=== PATIENT | male | born 1965 | race Hispanic/Latino ===

== ENCOUNTER 2017-01-20 14:58 | Emergency (ER) | payer SELFPAY ==
[2017-01-20 16:10] LABS: Basophils % (Auto) 0.6 % (0.0-1.8); Eosinophils % (Auto) 0.3 % (0.0-4.3); Hematocrit 48.2 % (35.5-45.6); Hemoglobin 16.3 gm/dl (11.8-15.2); Mean Corpuscular HGB Conc 34 % (32-34); Mean Corpuscular Hemoglobin 34 pg (28-32); Mean Corpuscular Volume 100 fl (84-94); Platelet Count 349 K/mm3 (140-440); Red Blood Count 4.84 M/mm3 (3.65-5.03); Red Cell Distribution Width 13.5 % (13.2-15.2); White Blood Count 10.4 K/mm3 (4.5-11.0)
[2017-01-20 16:19] LABS: Alanine Aminotransferase 55 units/L (7-56); Albumin 4.6 g/dL (3.9-5); Albumin/Globulin Ratio 1.5 %; Alkaline Phosphatase 67 units/L (35-129); Anion Gap 25 mmol/L; BUN/Creatinine Ratio 23.75; Blood Urea Nitrogen 19 mg/dL (9-20); Calcium 9.8 mg/dL (8.4-10.2); Carbon Dioxide 24 mmol/L (22-30); Glucose 171 mg/dL (75-100); Lipase 67 units/L (13-60); Potassium 3.8 mmol/L (3.6-5.0); Sodium 135 mmol/L (137-145); Total Protein 7.7 g/dL (6.3-8.2)
[2017-01-20 17:40] LABS: Bilirubin,Urine NEG (Negative); Blood,Urine NEG (Negative); Ketones,Urine TR mg/dL (Negative); Leukocyte Esterase,Urine NEG (Negative); Mucus,Urine 3+ /HPF; Nitrite,Urine NEG (Negative)
[2017-01-21] MEDS ORDERED: PEPCID PO ONE (00:55)
[2017-01-21] MEDS ORDERED: LIDOCAINE VISCOUS 2% PO ONE (00:55)
[2017-01-21] MEDS ORDERED: NACL 0.9% 1000 ML 1,000 ML IV ONE (00:55)
[2017-01-21] MEDS ORDERED: ZOFRAN ODT PO ONE (00:55)
[2017-01-21] MEDS ORDERED: ALUM-MAG HYDROX-SIMETH 200-200-20MG/5ML PO ONE (00:55)
--- NOTE | 2017-01-21 01:21 | Emergency Department Report ---
ED Abdominal Pain HPI - General Chief Complaint: Abdominal Pain Stated Complaint: ABD PAIN/VOMITING Time Seen by Provider: 01/21/17 00:52 Source: patient Mode of arrival: Ambulatory Limitations: No Limitations - History of Present Illness Initial Comments: Patient is a 51-year-old male with a history of GERD and bilateral inguinal hernia repair presenting today because of abdominal pain. Patient states that the abdominal pain is epigastric and burning and similar to his prior GERD. He normally takes Prilosec but has been out for a little while. Has associated nausea with occasional vomiting but no diarrhea or blood in the stool. Denies any fevers or chills. Severity scale (0 -10): 10 - Related Data Home Medications Medication Instructions Recorded Confirmed Last Taken No Known Home Medications [No 01/20/17 01/20/17 Unknown Reported Home Medications] Allergies Allergy/AdvReac Type Severity Reaction Status Date / Time metoclopramide HCl Allergy Unknown Verified 12/14/15 09:30 [From Reglan] promethazine HCl Allergy Unknown Verified 12/14/15 09:30 [From Phenergan] ED Review of Systems ROS: Stated complaint: ABD PAIN/VOMITING Other details as noted in HPI Comment: All other systems reviewed and negative Constitutional: denies: chills, fever Cardiovascular: denies: chest pain Gastrointestinal: abdominal pain, nausea, vomiting Genitourinary: denies: dysuria Skin: denies: rash Psychiatric: denies: anxiety ED Past Medical Hx - Past Medical History Previous Medical History?: Yes Hx GERD: Yes Hx Psychiatric Treatment: Yes (anxiety, ETOH abuse, DRUG ABUSE) - Surgical History Past Surgical History?: Yes Additional Surgical History: hernia surgery X 2 - Social History Smoking Status: Current Some Day Smoker Substance Use Type: Alcohol - Medications Home Medications: Home Medications Medication Instructions Recorded Confirmed Last Taken Type No Known Home Medications [No 01/20/17 01/20/17 Unknown History Reported Home Medications] ED Physical Exam - General Limitations: No Limitations General appearance: alert, in no apparent distress - Head Head exam: Present: atraumatic - Respiratory Respiratory exam: Present: normal lung sounds bilaterally. Absent: respiratory distress, wheezes - Cardiovascular Cardiovascular Exam: Present: regular rate, normal rhythm - GI/Abdominal GI/Abdominal exam: Present: soft. Absent: distended, tenderness, guarding, rebound, rigid - Neurological Exam Neurological exam: Present: alert, oriented X3 - Psychiatric Psychiatric exam: Present: normal affect ED Course Vital Signs 01/20/17 01/20/17 01/20/17 15:14 20:59 22:58 Temperature 97.8 F Pulse Rate 82 108 H 90 Respiratory 20 18 22 Rate Blood Pressure 163/102 Blood Pressure 142/103 [Right] O2 Sat by Pulse 100 99 99 Oximetry 01/20/17 01/20/17 01/21/17 23:00 23:30 00:00 Temperature Pulse Rate 91 H 107 H 95 H Respiratory 11 L 19 17 Rate Blood Pressure 132/95 129/92 Blood Pressure 132/95 [Right] O2 Sat by Pulse 98 98 97 Oximetry 01/21/17 01/21/17 01/21/17 00:30 01:00 01:30 Temperature Pulse Rate 95 H 89 72 Respiratory 20 13 17 Rate Blood Pressure 128/83 125/93 115/75 Blood Pressure [Right] O2 Sat by Pulse 96 98 97 Oximetry 01/21/17 01/21/17 01/21/17 02:00 02:30 03:53 Temperature Pulse Rate 71 74 Respiratory 15 17 18 Rate Blood Pressure 110/72 106/65 Blood Pressure [Right] O2 Sat by Pulse 99 Oximetry ED Medical Decision Making - Lab Data Result diagrams: 01/20/17 15:20 01/20/17 15:20 - Medical Decision Making Labs have been preordered, are unremarkable including a minimally elevated lipase and liver enzymes Most likely due to peptic ulcer disease versus GERD GI cocktail and Zofran ordered as well as IV fluids as the patient is dehydrated Patient felt significantly better after GI cocktail, is going to the patient importance of following up with primary care and gastroenterology. Also spent that he needs to have the blood in his urine investigated as this could be possibly due to cancer. Patient understood. Was discharged with paper chart as the EMR was down. Critical care attestation.: If time is entered above; I have spent that time in minutes in the direct care of this critically ill patient, excluding procedure time. ED Disposition Clinical Impression: Epigastric abdominal pain Disposition: DISCHARGED TO HOME OR SELFCARE Is pt being admited?: No Condition: Stable Referrals: PRIMARY CARE, [Primary Care Provider] - 3-5 Days
[2017-01-21 02:42] VITALS: BP 106/65
[2017-01-21] MEDS ORDERED: TYLENOL PO ONE (03:42)
== END 2017-01-21 05:10 | disposition home or self-care (01) ==
LOC: ED 14:58
DX: R10.13 Epigastric pain (principal); R11.2 Nausea with vomiting, unspecified; K21.9 Gastro-esophageal reflux disease without esophagitis; F17.200 Nicotine dependence, unspecified, uncomplicated
CPT/HCPCS: 36415; 80053; 81001; 83690; 85025; 96360; 96361; 99283; J7030; Q0162

== ENCOUNTER 2018-04-04 08:18 | Inpatient (IN) | payer SELFPAY ==
[2018-04-04] MEDS ORDERED: ZOFRAN IV ONE (09:34)
[2018-04-04] MEDS ORDERED: PROTONIX IV ONE (09:34)
[2018-04-04] MEDS ORDERED: NACL 0.9% 1000 ML 1,000 ML IV ONE ×2 (09:34→10:25)
--- NOTE | 2018-04-04 09:38 | Emergency Department Report ---
Blank Doc - Documentation Documentation: Patient is 52 years old male with history of GERD and alcohol abuse. Patient presented to the ER complaining of epigastric pain associated with nausea and vomiting for the last 3 days. Patient stated that the last time he drink was 5 days ago. Patient stated that he is weak all over. Patient denied any fever or diarrhea. Patient also denied any chest pain or shortness of breath. On examination patient is moderately dehydrated, moderate distress secondary to pain, heart sounds are normal, lungs are clear, abdomen is soft with epigastric tenderness no guarding. Patient will need IV fluids, pain medicine, nausea medicine and blood work. Patient would be served best in our main ED.
[2018-04-04 09:57] LABS: Eosinophils % (Auto) 0.3 % (0.0-4.3); Monocytes # (Auto) 1.2 K/mm3 (0.0-0.8); Monocytes % (Auto) 10.7 % (0.0-7.3)
[2018-04-04] MEDS ORDERED: SUBLIMAZE IV ONE (10:00)
[2018-04-04 10:09] LABS: Hematocrit 50.4 % (35.5-45.6); Hemoglobin 17.8 gm/dl (11.8-15.2); Mean Corpuscular HGB Conc 35 % (32-34); Mean Corpuscular Hemoglobin 36 pg (28-32); Mean Corpuscular Volume 101 fl (84-94); Mean Platelet Volume 7.7 fl (6-12); Platelet Count 386 K/mm3 (140-440); Red Blood Count 4.98 M/mm3 (3.65-5.03); Red Cell Distribution Width 12.6 % (13.2-15.2)
[2018-04-04 10:10] LABS: Basophils % (Auto) 0.3 % (0.0-1.8); Lymphocytes # (Auto) 2.1 K/mm3 (1.2-5.4)
--- NOTE | 2018-04-04 10:14 | Emergency Department Report ---
HPI - General Chief Complaint: Abdominal Pain Time Seen by Provider: 04/04/18 09:30 - [facility] HPI: Room 3 The patient is a 52-year-old male presenting with chief complaint of abdominal pain. The patient states for the past 4 days she's had a constant burning midepigastric abdominal pain associated with nausea and vomiting. Patient states she's noticed increasing eructation. Patient denies diarrhea but states he hasn't had any food inside of him. Patient is uncertain as he's had a fever or not Location: Abdomen Duration: 4 days Quality: Burning Severity: Moderate Modifying factors: [see above] Context: [see above] Mode of transportation: [not driving] ED Past Medical Hx - Past Medical History Previous Medical History?: Yes Hx GERD: Yes Hx Psychiatric Treatment: Yes (anxiety, ETOH abuse, DRUG ABUSE) - Surgical History Past Surgical History?: Yes Additional Surgical History: hernia surgery X 2 - Family History Family history: no significant - Social History Smoking Status: Current Some Day Smoker Substance Use Type: Alcohol (24 ounces of loco beer daily), Marijuana - Medications Home Medications: Home Medications Medication Instructions Recorded Confirmed Last Taken Type No Known Home Medications [No 01/20/17 01/20/17 Unknown History Reported Home Medications] ED Review of Systems ROS: Stated complaint: ABDOMINAL PAIN/NAUSEA Other details as noted in HPI Constitutional: fever (?) Eyes: denies: eye pain ENT: denies: throat pain Respiratory: no symptoms reported Cardiovascular: denies: chest pain Endocrine: no symptoms reported Gastrointestinal: abdominal pain, nausea, vomiting. denies: diarrhea Genitourinary: denies: dysuria Musculoskeletal: denies: back pain Neurological: denies: headache Physical Exam - Physical Exam Vital Signs: Vital Signs 04/04/18 08:23 Temperature 98.0 F Pulse Rate 87 Respiratory 20 Rate Blood Pressure 151/93 O2 Sat by Pulse 99 Oximetry Physical Exam: GENERAL: The patient is well-developed well-nourished male lying on stretcher appearing to be in mild discomfort. [] HEENT: Normocephalic. Atraumatic. Extraocular motions are intact. Patient has moist mucous membranes. NECK: Supple. Trachea midline CHEST/LUNGS: Clear to auscultation. There is no respiratory distress noted. HEART/CARDIOVASCULAR: Regular. There is no tachycardia. There is no gallop rub or murmur. ABDOMEN: Abdomen is soft, with diffuse discomfort to palpation but greatest in midepigastric region. Patient has normal bowel sounds. There is no abdominal distention. SKIN: There is no rash. There is no edema. There is no diaphoresis. NEURO: The patient is awake, alert, and oriented. The patient is cooperative. The patient has normal speech MUSCULOSKELETAL: There is no evidence of acute injury. ED Course Vital Signs 04/04/18 08:23 Temperature 98.0 F Pulse Rate 87 Respiratory 20 Rate Blood Pressure 151/93 O2 Sat by Pulse 99 Oximetry ED Medical Decision Making - Lab Data Result diagrams: 04/04/18 09:43 04/04/18 09:43 Laboratory Tests 04/04/18 04/04/18 04/04/18 09:43 09:43 09:43 WBC 11.5 H RBC 4.98 Hgb 17.8 H Hct 50.4 H MCV 101 H MCH 36 H MCHC 35 H RDW 12.6 L Plt Count 386 Lymph % (Auto) 18.0 [place] % (Auto) 10.7 H Eos % (Auto) 0.3 Baso % (Auto) 0.3 Lymph # 2.1 [place] # 1.2 H Eos # 0.0 Baso # 0.0 Seg Neutrophils % 70.7 H Seg Neutrophils # 8.1 H Sodium 131 L Potassium 4.0 Chloride 83.5 L Carbon Dioxide 26 Anion Gap 26 BUN 37 H Creatinine 1.0 Estimated GFR > 60 BUN/Creatinine Ratio 37 Glucose 118 H Calcium 9.6 Total Bilirubin 1.20 Direct Bilirubin 0.4 H Indirect Bilirubin 0.8 AST 33 ALT 35 Alkaline Phosphatase 61 Total Creatine Kinase 262 H CK-MB (CK-2) 4.0 CK-MB (CK-2) Rel Index 1.5 Troponin T < 0.010 Total Protein 8.1 Albumin 4.7 Albumin/Globulin Ratio 1.4 Lipase 100 H - Radiology Data Radiology results: report reviewed (CT abdomen and pelvis), image reviewed (CT abdomen and pelvis) Findings [facility] [address] [place] [address] Cat Scan Report Signed Patient: JENNIFER HERNANDEZ MR#: [id number] : 1965 Acct:[id number] Age/Sex: 52 / M ADM Date: 04/04/18 Loc: ED Attending Dr: Ordering Physician: MARK ANTHONY RODRIGUEZ MD Date of Service: 04/04/18 Procedure(s): CT abdomen pelvis w con Accession Number(s): [id number] cc: MARK ANTHONY RODRIGUEZ MD FINAL REPORT EXAM: CT ABDOMEN PELVIS W CON HISTORY: epigastric abdominal pain, nausea/ vomiting TECHNIQUE: CT abdomen and pelvis performed. Images extend from diaphragm to pubic symphysis. 100 cc Omnipaque 300 IV was administered. No oral contrast was administered. Axial images and coronal and sagittal reformatted images were obtained. PRIORS: 05/20/2016 and 03/16/2015 FINDINGS: The visualized aspects of the lung bases are clear. There is likely cholelithiasis versus small gallbladder polyps. There is a 1.2 cm low-density lesion in the inferior right hepatic lobe and 8 mm lesion in the lateral left lobe. These are and likely cysts. Tiny lesion in medial left lobe measures 8 mm and is too small to characterize to definitively characterized but is likely present in 2014. It most likely a very small hemangioma. The visualized spleen, pancreas, adrenal glands and kidneys demonstrate no significant abnormalities. There is no abdominal aortic aneurysm. There is no evidence of intestinal obstruction. The appendix is normal. There is no free intraperitoneal air. There are no abnormal fluid collections seen. The bladder is unremarkable. There is diverticulosis involving the sigmoid colon, but there is no evidence of acute diverticulitis. IMPRESSION: Two small liver cysts are unchanged. Other 8 mm liver lesion is probably a small hemangioma. Diverticulosis. There is no evidence of acute diverticulitis. Cholelithiasis versus small gallbladder polyps. Transcribed By: [facility] Dictated By: EMMA ROMO MD Electronically Authenticated By: EMMA ROMO MD Signed Date/Time: 04/04/181122 DD/ 112 TD/ TT: 04/04/18 112 - Differential Diagnosis pancreatitis, GERD, peptic ulcer disease, cholelithiasis, ACS Critical care attestation.: If time is entered above; I have spent that time in minutes in the direct care of this critically ill patient, excluding procedure time. ED Disposition Clinical Impression: Acute pancreatitis, Acute abdominal pain, Nausea & vomiting Disposition: OP ADMIT IP TO THIS HOSP Is pt being admited?: Yes Does the pt Need Aspirin: No Condition: Fair Referrals: PRIMARY CARE, [Primary Care Provider] - 3-5 Days Time of Disposition: 11:35 (hospitalist notified (Dr Gutierrez))
[2018-04-04 10:17] LABS: Alanine Aminotransferase 35 units/L (7-56); Albumin 4.7 g/dL (3.9-5); BUN/Creatinine Ratio 37; Bilirubin,Direct 0.4 mg/dL (0-0.2); Blood Urea Nitrogen 37 mg/dL (9-20); Calcium 9.6 mg/dL (8.4-10.2); Hemolysis Index 11; Lipase 100 units/L (13-60)
--- NOTE | 2018-04-04 11:30 | Cat Scan Report ---
FINAL REPORT EXAM: CT ABDOMEN PELVIS W CON HISTORY: epigastric abdominal pain, nausea/vomiting TECHNIQUE: CT abdomen and pelvis performed. Images extend from diaphragm to pubic symphysis. 100 cc Omnipaque 300 IV was administered. No oral contrast was administered. Axial images and coronal and sagittal reformatted images were obtained. PRIORS: 05/20/2016 and 03/16/2015 FINDINGS: The visualized aspects of the lung bases are clear. There is likely cholelithiasis versus small gallbladder polyps. There is a 1.2 cm low-density lesion in the inferior right hepatic lobe and 8 mm lesion in the lateral left lobe. These are and likely cysts. Tiny lesion in medial left lobe measures 8 mm and is too small to characterize to definitively characterized but is likely present in 2014. It most likely a very small hemangioma. The visualized spleen, pancreas, adrenal glands and kidneys demonstrate no significant abnormalities. There is no abdominal aortic aneurysm. There is no evidence of intestinal obstruction. The appendix is normal. There is no free intraperitoneal air. There are no abnormal fluid collections seen. The bladder is unremarkable. There is diverticulosis involving the sigmoid colon, but there is no evidence of acute diverticulitis. IMPRESSION: Two small liver cysts are unchanged. Other 8 mm liver lesion is probably a small hemangioma. Diverticulosis. There is no evidence of acute diverticulitis. Cholelithiasis versus small gallbladder polyps.
[2018-04-04] MEDS: DILAUDID IV PRN ×2 (14:46→20:11)
[2018-04-04 19:06] LABS: Bilirubin,Urine NEG (Negative); Blood,Urine NEG (Negative); Color,Urine Yellow (Yellow); Protein,Urine <15 mg/dL mg/dL (Negative)
[2018-04-04] MEDS ORDERED: PHENERGAN PR PRN (20:59)
[2018-04-04] MEDS ORDERED: REGLAN IV PRN (20:59)
[2018-04-04] MEDS ORDERED: MORPHINE IV PRN (20:59)
[2018-04-04] MEDS ORDERED: SODIUM CHLORIDE FLUSH SYRINGE 10 ML IV PRN (20:59)
[2018-04-04] MEDS ORDERED: TYLENOL PO PRN (20:59)
[2018-04-04] MEDS ORDERED: ZOFRAN IV PRN (20:59)
--- NOTE | 2018-04-04 21:09 | History and Physical Report ---
History of Present Illness Date of examination: 04/04/18 Date of admission: 04/04/18 11:14 Chief complaint: Chief complaint: Severe abdominal pain for 4 days associated with nausea and vomiting. History of present illness: ERASTO: 52-year-old male with no significant past medical history comes in for severe epigastric pain of 4 days' duration. Pain is sharp and is 10 over 10. Radiating to the back. It is associated with nausea and vomiting 2-3 times a day. No diarrhea. Patient consumes alcohol on a regular basis. He uses about 2 bottles of 24 ounces beer and also marijuana on a regular basis. Smokes over a pack a day. No fever or chills. No exacerbating or relieving factors. Past Medical History Previous Medical History?: Yes Hx GERD: Yes Hx Psychiatric Treatment: Yes (anxiety, ETOH abuse, DRUG ABUSE) Surgical History Past Surgical History?: Yes Additional Surgical History: hernia surgery X 2 Family History Family history: no significant Social History Smoking Status: Current Some Day Smoker Substance Use Type: Alcohol (24 ounces of loco beer daily), Marijuana - Medications Home Medications: Home Medications Medication Instructions Recorded Confirmed Last Taken Type No Known Home Medications [No 01/20/17 01/20/17 Unknown History Reported Home Medications] Review of Systems ROS: Stated complaint: ABDOMINAL PAIN/NAUSEA Other details as noted in HPI Constitutional: fever (?) Eyes: denies: eye pain ENT: denies: throat pain Respiratory: no symptoms reported Cardiovascular: denies: chest pain Endocrine: no symptoms reported Gastrointestinal: abdominal pain, nausea, vomiting. denies: diarrhea Genitourinary: denies: dysuria Musculoskeletal: denies: back pain Neurological: denies: headache Medications and Allergies Allergies Allergy/AdvReac Type Severity Reaction Status Date / Time metoclopramide HCl Allergy Unknown Verified 12/14/15 09:30 [From Reglan] promethazine HCl Allergy Unknown Verified 12/14/15 09:30 [From Phenergan] Home Medications Medication Instructions Recorded Confirmed Last Taken Type No Known Home Medications [No 01/20/17 01/20/17 Unknown History Reported Home Medications] Active Meds: Active Medications Acetaminophen (Tylenol) 650 mg PO Q4H PRN PRN Reason: Pain MILD(1-3)/Fever >100.5/FUNK Enoxaparin Sodium (Lovenox) 40 mg [facility] mg IV BID DUC Hydromorphone HCl (Dilaudid) 1 mg IV Q3H PRN PRN Reason: Pain , Severe (7-10) Last Admin: 04/04/18 20:11 Dose: 1 mg Dextrose/Sodium Chloride (D5ns) 1,000 mls @ 100 mls/hr IV DIRECT DUC Metoclopramide HCl (Reglan) 10 mg IV Q6H PRN PRN Reason: Nausea And Vomiting Morphine Sulfate (Morphine) 4 mg IV Q4H PRN PRN Reason: Pain, Moderate (4-6) Ondansetron HCl (Zofran) 4 mg IV Q8H PRN PRN Reason: Nausea And Vomiting Promethazine HCl (Phenergan) 25 mg IA Q6H PRN PRN Reason: N/V IF NPO AND NO IV ACCESS Sodium Chloride (Sodium Chloride Flush Syringe 10 Ml) 10 ml IV BID DUC Sodium Chloride (Sodium Chloride Flush Syringe 10 Ml) 10 ml IV PRN PRN PRN Reason: LINE FLUSH Exam - Physical Exam Narrative exam: Lying in bed in mild distress - Constitutional Vitals: Temp Pulse Resp BP Pulse Ox 98.7 F 80 19 116/78 99 04/04/18 12:34 04/04/18 11:59 04/04/18 12:34 04/04/18 12:34 04/04/18 08:23 General appearance: Present: mild distress, well-nourished - EENT Eyes: Present: PERRL ENT: hearing intact, clear oral mucosa - Neck Neck: Present: supple, normal ROM - Respiratory Respiratory effort: normal Respiratory: bilateral: CTA - Cardiovascular Heart rate: 76 Rhythm: regular Heart Sounds: Present: S1 & S2. Absent: rub, click - Extremities Extremities: no ischemia, pulses intact, pulses symmetrical, No edema Peripheral Pulses: within normal limits - Abdominal General gastrointestinal: Present: tender, non-distended, normal bowel sounds Localized gastrointestinal: tender: diffuse, guarding: diffuse, rebound: diffuse Male genitourinary: Present: normal - Rectal Rectal Exam: deferred - Integumentary Integumentary: Present: clear, warm, dry - Musculoskeletal Musculoskeletal: gait normal, strength equal bilaterally - Psychiatric Psychiatric: appropriate mood/affect, intact judgment & insight - Neurologic Neurologic: CNII-XII intact, moves all extremities - Allied Health Allied health notes reviewed: nursing, case management Results - Labs CBC & Chem 7: 04/04/18 09:43 04/04/18 09:43 Labs: Laboratory Last Values WBC 11.5 K/mm3 (4.5-11.0) H 04/04/18 09:43 RBC 4.98 M/mm3 (3.65-5.03) 04/04/18 09:43 Hgb 17.8 gm/dl (11.8-15.2) H 04/04/18 09:43 Hct 50.4 % (35.5-45.6) H 04/04/18 09:43 MCV 101 fl (84-94) H 04/04/18 09:43 MCH 36 pg (28-32) H 04/04/18 09:43 MCHC 35 % (32-34) H 04/04/18 09:43 RDW 12.6 % (13.2-15.2) L 04/04/18 09:43 Plt Count 386 K/mm3 (140-440) 04/04/18 09:43 Lymph % (Auto) 18.0 % (13.4-35.0) 04/04/18 09:43 [place] % (Auto) 10.7 % (0.0-7.3) H 04/04/18 09:43 Eos % (Auto) 0.3 % (0.0-4.3) 04/04/18 09:43 Baso % (Auto) 0.3 % (0.0-1.8) 04/04/18 09:43 Lymph # 2.1 K/mm3 (1.2-5.4) 04/04/18 09:43 [place]kinson # 1.2 K/mm3 (0.0-0.8) H 04/04/18 09:43 Eos # 0.0 K/mm3 (0.0-0.4) 04/04/18 09:43 Baso # 0.0 K/mm3 (0.0-0.1) 04/04/18 09:43 Seg Neutrophils % 70.7 % (40.0-70.0) H 04/04/18 09:43 Seg Neutrophils # 8.1 K/mm3 (1.8-7.7) H 04/04/18 09:43 Sodium 131 mmol/L (137-145) L 04/04/18 09:43 Potassium 4.0 mmol/L (3.6-5.0) 04/04/18 09:43 Chloride 83.5 mmol/L (98-107) L 04/04/18 09:43 Carbon Dioxide 26 mmol/L (22-30) 04/04/18 09:43 Anion Gap 26 mmol/L 04/04/18 09:43 BUN 37 mg/dL (9-20) H 04/04/18 09:43 Creatinine 1.0 mg/dL (0.8-1.5) 04/04/18 09:43 Estimated GFR > 60 ml/min 04/04/18 09:43 BUN/Creatinine Ratio 37 % 04/04/18 09:43 Glucose 118 mg/dL (75-100) H 04/04/18 09:43 Calcium 9.6 mg/dL (8.4-10.2) 04/04/18 09:43 Total Bilirubin 1.20 mg/dL (0.1-1.2) 04/04/18 09:43 Direct Bilirubin 0.4 mg/dL (0-0.2) H 04/04/18 09:43 Indirect Bilirubin 0.8 mg/dL 04/04/18 09:43 AST 33 units/L (5-40) 04/04/18 09:43 ALT 35 units/L (7-56) 04/04/18 09:43 Alkaline Phosphatase 61 units/L (35-129) 04/04/18 09:43 Total Creatine Kinase 262 units/L (55-170) H 04/04/18 09:43 CK-MB (CK-2) 4.0 ng/mL (0.0-4.0) 04/04/18 09:43 CK-MB (CK-2) Rel Index 1.5 (0-4) 04/04/18 09:43 Troponin T < 0.010 ng/mL (0.00-0.029) 04/04/18 09:43 Total Protein 8.1 g/dL (6.3-8.2) 04/04/18 09:43 Albumin 4.7 g/dL (3.9-5) 04/04/18 09:43 Albumin/Globulin Ratio 1.4 % 04/04/18 09:43 Lipase 100 units/L (13-60) H 04/04/18 09:43 Urine Color Yellow (Yellow) 04/04/18 Unknown Urine Turbidity Clear (Clear) 04/04/18 Unknown Urine pH 5.0 (5.0-7.0) 04/04/18 Unknown Ur Specific [place] 1.057 (1.003-1.030) H 04/04/18 Unknown Urine Protein <15 mg/dl mg/dL (Negative) 04/04/18 Unknown Urine Glucose (UA) Neg mg/dL (Negative) 04/04/18 Unknown Urine Ketones 20 mg/dL (Negative) 04/04/18 Unknown Urine Blood Neg (Negative) 04/04/18 Unknown Urine Nitrite Neg (Negative) 04/04/18 Unknown Urine Bilirubin Neg (Negative) 04/04/18 Unknown Urine Urobilinogen 4.0 mg/dL (<2.0) 04/04/18 Unknown Ur Leukocyte Esterase Neg (Negative) 04/04/18 Unknown Urine WBC (Auto) 1.0 /HPF (0.0-6.0) 04/04/18 Unknown Urine RBC (Auto) 1.0 /HPF (0.0-6.0) 04/04/18 Unknown U Epithel Cells (Auto) < 1.0 /HPF (0-13.0) 04/04/18 Unknown Short CBC 04/04/18 Range/Units 09:43 WBC 11.5 H (4.5-11.0) K/mm3 Hgb 17.8 H (11.8-15.2) gm/dl Hct 50.4 H (35.5-45.6) % Plt Count 386 (140-440) K/mm3 BMP 04/04/18 09:43 Sodium 131 L Potassium 4.0 Chloride 83.5 L Carbon Dioxide 26 BUN 37 H Creatinine 1.0 Glucose 118 H Calcium 9.6 Cardiac Enzymes 04/04/18 Range/Units 09:43 Total Creatine Kinase 262 H (55-170) units/L CK-MB (CK-2) 4.0 (0.0-4.0) ng/mL Troponin T < 0.010 (0.00-0.029) ng/mL Liver Function 04/04/18 Range/Units 09:43 Total Bilirubin 1.20 (0.1-1.2) mg/dL Direct Bilirubin 0.4 H (0-0.2) mg/dL AST 33 (5-40) units/L ALT 35 (7-56) units/L Alkaline Phosphatase 61 (35-129) units/L Albumin 4.7 (3.9-5) g/dL Urine // Range/Units Unknown Urine Color Yellow (Yellow) Urine pH 5.0 (5.0-7.0) Ur Specific [place] 1.057 H (1.003-1.030) Urine Protein <15 mg/dl (Negative) mg/dL Urine Glucose (UA) Neg (Negative) mg/dL - Imaging and Cardiology Imaging and Cardiology: CT abdomen: IMPRESSION: Two small liver cysts are unchanged. Other 8 mm liver lesion is probably a small hemangioma. Diverticulosis. There is no evidence of acute diverticulitis. Cholelithiasis versus small gallbladder polyps. Assessment and Plan Advance Directives: Yes (full code) VTE prophylaxis?: Chemical Plan of care discussed with patient/family: Yes - Patient Problems (1) Acute pancreatitis Current Visit: Yes Status: Acute Qualifiers: Pancreatitis type: alcohol induced Plan to address problem: CT of the abdomen does not show acute pancreatitis Clinically in favor of acute pancreatitis Abdomen is ordered Amylase ordered Lipase is 100 Pain management for now Keep the patient nothing by mouth Surgical consult (2) Dehydration, severe Current Visit: Yes Status: Acute Plan to address problem: IV fluids for now (3) ROSSY (acute kidney injury) Current Visit: Yes Status: Acute Plan to address problem: IV fluids for now (4) EtOH dependence Current Visit: Yes Status: Acute Qualifiers: Substance use status: in withdrawal Plan to address problem: CIWA protocol initiated (5) Nicotine dependence Current Visit: Yes Status: Chronic Qualifiers: Nicotine product type: cigarettes Plan to address problem: Patient refuses NicoDerm patch (6) DVT prophylaxis Current Visit: Yes Status: Acute Plan to address problem: Lovenox 40 mg subcutaneous daily
[2018-04-04] MEDS ORDERED: ATIVAN IV PRN ×2 (21:20)
[2018-04-04] MEDS: D5NS 1,000 ML IV SCH (21:37)
[2018-04-04] MEDS: PEPCID IV SCH (21:38)
[2018-04-04] MEDS: SODIUM CHLORIDE FLUSH SYRINGE 10 ML IV SCH (21:38)
[2018-04-05 04:48] LABS: Basophils # (Auto) 0.1 K/mm3 (0.0-0.1); Basophils % (Auto) 0.6 % (0.0-1.8); Eosinophils # (Auto) 0.1 K/mm3 (0.0-0.4); Eosinophils % (Auto) 1.4 % (0.0-4.3); Hematocrit 41.1 % (35.5-45.6); Hemoglobin 14.4 gm/dl (11.8-15.2); Lymphocytes # (Auto) 2.5 K/mm3 (1.2-5.4); Lymphocytes % (Auto) 30.5 % (13.4-35.0); Mean Corpuscular HGB Conc 35 % (32-34); Mean Corpuscular Hemoglobin 36 pg (28-32); Mean Corpuscular Volume 102 fl (84-94); Monocytes # (Auto) 0.9 K/mm3 (0.0-0.8); Monocytes % (Auto) 10.4 % (0.0-7.3); Platelet Count 270 K/mm3 (140-440); Red Blood Count 4.02 M/mm3 (3.65-5.03); Red Cell Distribution Width 12.6 % (13.2-15.2)
[2018-04-05 05:06] LABS: Lipase 87 units/L (13-60)
[2018-04-05 05:13] LABS: Alanine Aminotransferase 25 units/L (7-56); Albumin 3.3 g/dL (3.9-5); BUN/Creatinine Ratio 27; Blood Urea Nitrogen 19 mg/dL (9-20); Calcium 8.1 mg/dL (8.4-10.2); Hemolysis Index 67
[2018-04-05] MEDS: D5NS 1,000 ML IV SCH ×2 (07:42→17:35)
--- NOTE | 2018-04-05 09:49 | Consultation ---
History of Present Illness Consult date: 04/05/18 Reason for consult: abdominal pain Requesting physician: PEGGY WALLIS Chief complaint: One-week history of abdominal pain - History of present illness History of present illness: 52-year-old male presents to the emergency department with complaints of about a one-week history of abdominal pain associated with nausea, vomiting and bloating. Reports that pain radiates straight into the back. He was drinking daily at the time with the pain started. He has had similar pain in the past. Denies any knowledge of prior diagnoses of pancreatitis. Denies any fevers or chills. Has not had a bowel movement in a week. Does have history of heartburn. Current medication of Pepcid is helping with the burning sensation. He is concerned that he may also have hepatitis C based on a prior attempt at blood donation. Patient is hungry and thirsty at this time. Pain has decreased compared to admission. He is no longer nauseated or has he vomited. Past History Past Medical History: GERD, other (anxiety) Past Surgical History: hernia repair (BIH repairs) Social history: smoking (reports 1pack/week), alcohol abuse (24oz can of beer daily). denies: IV drug use Family history: no significant family history Medications and Allergies Allergies Allergy/AdvReac Type Severity Reaction Status Date / Time metoclopramide HCl Allergy Unknown Verified 12/14/15 09:30 [From Reglan] promethazine HCl Allergy Unknown Verified 12/14/15 09:30 [From Phenergan] Home Medications Medication Instructions Recorded Confirmed Last Taken Type No Known Home Medications [No 01/20/17 01/20/17 Unknown History Reported Home Medications] Active Meds: Active Medications Acetaminophen (Tylenol) 650 mg PO Q4H PRN PRN Reason: Pain MILD(1-3)/Fever >100.5/FUNK Enoxaparin Sodium (Lovenox) 40 mg SUB-Q QDAY DUC Famotidine (Pepcid) 20 mg IV BID DUC Last Admin: 04/04/18 21:38 Dose: 20 mg Hydromorphone HCl (Dilaudid) 1 mg IV Q3H PRN PRN Reason: Pain , Severe (7-10) Last Admin: 04/04/18 20:11 Dose: 1 mg Dextrose/Sodium Chloride (D5ns) 1,000 mls @ 100 mls/hr IV DIRECT [facility] Last Admin: 04/05/18 07:42 Dose: 100 mls/hr Lorazepam (Ativan) 2 mg IV Q1H PRN PRN Reason: CIWA-Ar 8-15 Lorazepam (Ativan) 4 mg IV Q1H PRN PRN Reason: CIWA-Ar 16-25 Metoclopramide HCl (Reglan) 10 mg IV Q6H PRN PRN Reason: Nausea And Vomiting Morphine Sulfate (Morphine) 4 mg IV Q4H PRN PRN Reason: Pain, Moderate (4-6) Ondansetron HCl (Zofran) 4 mg IV Q8H PRN PRN Reason: Nausea And Vomiting Promethazine HCl (Phenergan) 25 mg DE Q6H PRN PRN Reason: N/V IF NPO AND NO IV ACCESS Sodium Chloride (Sodium Chloride Flush Syringe 10 Ml) 10 ml IV BID [facility] Last Admin: 04/04/18 21:38 Dose: 10 ml Sodium Chloride (Sodium Chloride Flush Syringe 10 Ml) 10 ml IV PRN PRN PRN Reason: LINE FLUSH Review of Systems - Constitutional no fever, no chills, no sweats, no chronic pain - Cardiovascular no chest pain - Respiratory no cough, no shortness of breath - Gastrointestinal abdominal pain, nausea, vomiting, constipation, heartburn, dyspepsia/bloating, no diarrhea, no hematemesis, no BRBPR, no melena, no hematochezia - Genitourinary no dysuria - Muskuloskeletal other (mid back pain) - Integumentary no rash, no pruritis, no jaundice Exam Vital Signs Temp Pulse Resp BP Pulse Ox 98.0 F 87 20 151/93 99 04/04/18 08:23 04/04/18 08:23 04/04/18 08:23 04/04/18 08:23 04/04/18 08:23 - General physical appearance Positive: no distress, no pain, other (intermittent twitches) - Eyes Positive: normal occular movement. Negative: icteric - Neck Positive: trachea midline - Respiratory Positive: normal expansion, normal respiratory effort, clear to auscultation - Cardiovascular Rhythm: regular - Abdomen Abdomen: Present: soft, tender (mild in epigastric area), bowel sounds normal, other (no pelvic shake tenderness). Absent: distended, guarding, rigid, wound - Integumentary no rash, no growths, no abnormal pigmentation - Neurologic Neurologic: alert and oriented to time, place and person, motor strength and sensation are grossly intact - Psychiatric Psychiatric: appropriate mood/affect, intact judgment & insight Results - Labs 04/05/18 03:27 04/05/18 03:27 Abnormal lab results 04/04/18 04/04/18 04/04/18 Range/Units 09:43 09:43 09:43 WBC 11.5 H (4.5-11.0) K/mm3 Hgb 17.8 H (11.8-15.2) gm/dl Hct 50.4 H (35.5-45.6) % MCV 101 H (84-94) fl MCH 36 H (28-32) pg MCHC 35 H (32-34) % RDW 12.6 L (13.2-15.2) % [place] % (Auto) 10.7 H (0.0-7.3) % [place] # 1.2 H (0.0-0.8) K/mm3 Seg Neutrophils % 70.7 H (40.0-70.0) % Seg Neutrophils # 8.1 H (1.8-7.7) K/mm3 Sodium 131 L (137-145) mmol/L Chloride 83.5 L (98-107) mmol/L BUN 37 H (9-20) mg/dL Creatinine (0.8-1.5) mg/dL Glucose 118 H (75-100) mg/dL Calcium (8.4-10.2) mg/dL Direct Bilirubin 0.4 H (0-0.2) mg/dL Total Creatine Kinase 262 H (55-170) units/L Total Protein (6.3-8.2) g/dL Albumin (3.9-5) g/dL Lipase 100 H (13-60) units/L Ur Specific [place] (1.003-1.030) 04/04/18 04/05/18 04/05/18 Range/Units Unknown 03:27 03:27 WBC (4.5-11.0) K/mm3 Hgb (11.8-15.2) gm/dl Hct (35.5-45.6) % MCV 102 H (84-94) fl MCH 36 H (28-32) pg MCHC 35 H (32-34) % RDW 12.6 L (13.2-15.2) % [place] % (Auto) 10.4 H (0.0-7.3) % [place] # 0.9 H (0.0-0.8) K/mm3 Seg Neutrophils % (40.0-70.0) % Seg Neutrophils # (1.8-7.7) K/mm3 Sodium 136 L (137-145) mmol/L Chloride (98-107) mmol/L BUN (9-20) mg/dL Creatinine 0.7 L (0.8-1.5) mg/dL Glucose (75-100) mg/dL Calcium 8.1 L D (8.4-10.2) mg/dL Direct Bilirubin (0-0.2) mg/dL Total Creatine Kinase (55-170) units/L Total Protein 5.6 L D (6.3-8.2) g/dL Albumin 3.3 L (3.9-5) g/dL Lipase (13-60) units/L Ur Specific [place] 1.057 H (1.003-1.030) 04/05/18 Range/Units 03:27 WBC (4.5-11.0) K/mm3 Hgb (11.8-15.2) gm/dl Hct (35.5-45.6) % MCV (84-94) fl MCH (28-32) pg MCHC (32-34) % RDW (13.2-15.2) % [place] % (Auto) (0.0-7.3) % [place] # (0.0-0.8) K/mm3 Seg Neutrophils % (40.0-70.0) % Seg Neutrophils # (1.8-7.7) K/mm3 Sodium (137-145) mmol/L Chloride (98-107) mmol/L BUN (9-20) mg/dL Creatinine (0.8-1.5) mg/dL Glucose (75-100) mg/dL Calcium (8.4-10.2) mg/dL Direct Bilirubin (0-0.2) mg/dL Total Creatine Kinase (55-170) units/L Total Protein (6.3-8.2) g/dL Albumin (3.9-5) g/dL Lipase 87 H (13-60) units/L Ur Specific [place] (1.003-1.030) Diabetes panel 04/04/18 04/04/18 04/05/18 Range/Units 09:14 09:43 03:27 Sodium 131 L 136 L (137-145) mmol/L Potassium 4.0 4.1 (3.6-5.0) mmol/L Chloride 83.5 L 101.2 (98-107) mmol/L Carbon Dioxide 26 22 (22-30) mmol/L BUN 37 H 19 (9-20) mg/dL Creatinine 1.0 0.7 L (0.8-1.5) mg/dL Glucose 118 H 91 (75-100) mg/dL Hemoglobin A1c 5.4 (4-6) % Calcium 9.6 8.1 L D (8.4-10.2) mg/dL AST 33 28 (5-40) units/L ALT 35 25 (7-56) units/L Alkaline Phosphatase 61 41 (35-129) units/L Total Protein 8.1 5.6 L D (6.3-8.2) g/dL Albumin 4.7 3.3 L (3.9-5) g/dL Calcium panel 04/04/18 04/04/18 04/05/18 Range/Units 09:43 22:29 03:27 Calcium 9.6 8.1 L D (8.4-10.2) mg/dL Phosphorus 3.00 (2.5-4.5) mg/dL Albumin 4.7 3.3 L (3.9-5) g/dL Pituitary panel 04/04/18 04/05/18 Range/Units 09:43 03:27 Sodium 131 L 136 L (137-145) mmol/L Potassium 4.0 4.1 (3.6-5.0) mmol/L Chloride 83.5 L 101.2 (98-107) mmol/L Carbon Dioxide 26 22 (22-30) mmol/L BUN 37 H 19 (9-20) mg/dL Creatinine 1.0 0.7 L (0.8-1.5) mg/dL Glucose 118 H 91 (75-100) mg/dL Calcium 9.6 8.1 L D (8.4-10.2) mg/dL Adrenal panel 04/04/18 04/05/18 Range/Units 09:43 03:27 Sodium 131 L 136 L (137-145) mmol/L Potassium 4.0 4.1 (3.6-5.0) mmol/L Chloride 83.5 L 101.2 (98-107) mmol/L Carbon Dioxide 26 22 (22-30) mmol/L BUN 37 H 19 (9-20) mg/dL Creatinine 1.0 0.7 L (0.8-1.5) mg/dL Glucose 118 H 91 (75-100) mg/dL Calcium 9.6 8.1 L D (8.4-10.2) mg/dL Total Bilirubin 1.20 0.50 (0.1-1.2) mg/dL AST 33 28 (5-40) units/L ALT 35 25 (7-56) units/L Alkaline Phosphatase 61 41 (35-129) units/L Total Protein 8.1 5.6 L D (6.3-8.2) g/dL Albumin 4.7 3.3 L (3.9-5) g/dL - Imaging CT scan - abdomen: report reviewed, image reviewed CT scan - pelvis: report reviewed, image reviewed Assessment and Plan - Patient Problems (1) Acute pancreatitis Current Visit: Yes Status: Acute Qualifiers: Pancreatitis type: alcohol induced Plan to address problem: Patient is stable. Based on his history, I think the pancreatitis is most likely related to alcohol use. Hold off on any surgical intervention for the gallbladder. His symptoms have improved. Exam is relatively benign. Will order clear liquid diet today. I have ordered a recheck of his lipase in the morning. As a side note, he is concerned about possible hepatitis C infection. I will order the initial test for the morning. Please call if there any questions. We will follow along. Time=30min
[2018-04-05] MEDS: PEPCID IV SCH ×2 (10:11→22:26)
[2018-04-05] MEDS: LOVENOX SUB-Q SCH (10:11)
[2018-04-05] MEDS: SODIUM CHLORIDE FLUSH SYRINGE 10 ML IV SCH ×2 (10:11→22:26)
--- NOTE | 2018-04-05 15:12 | Progress Note ---
Assessment and Plan - Patient Problems (1) Acute pancreatitis Current Visit: Yes Status: Acute Qualifiers: Pancreatitis type: alcohol induced Plan to address problem: CT of the abdomen does not show acute pancreatitis Clinically in favor of acute pancreatitis Surgical consult is appreciated Clear liquids started (2) Dehydration, severe Current Visit: Yes Status: Acute Plan to address problem: IV fluids for now Improved (3) ROSSY (acute kidney injury) Current Visit: Yes Status: Acute Plan to address problem: IV fluids for now (4) EtOH dependence Current Visit: Yes Status: Acute Qualifiers: Substance use status: in withdrawal Plan to address problem: CIWA protocol initiated (5) Nicotine dependence Current Visit: Yes Status: Chronic Qualifiers: Nicotine product type: cigarettes Plan to address problem: Patient refuses NicoDerm patch (6) Malnutrition Current Visit: Yes Status: Chronic Qualifiers: Malnutrition type: protein-calorie malnutrition Protein-calorie malnutrition severity: moderate Qualified Code(s): E44.0 - Moderate protein- calorie malnutrition Plan to address problem: Secondary to EtOH Dietitian consult requested for oral supplements (7) DVT prophylaxis Current Visit: Yes Status: Acute Plan to address problem: Lovenox 40 mg subcutaneous daily Subjective Date of service: 04/05/18 Principal diagnosis: Acute pancreatitis Interval history: Abdominal pain is better, tolerable Objective - Exam Narrative Exam: Lying in bed in mild distress - Constitutional Vitals: Vital Signs - 12hr 04/05/18 04/05/18 05:59 12:06 Temperature 98.4 F 97.6 F Pulse Rate 61 80 Respiratory 18 19 Rate Blood Pressure 104/65 119/82 O2 Sat by Pulse 98 98 Oximetry General appearance: Present: no acute distress, well-nourished - EENT Eyes: PERRL, EOM intact ENT: hearing intact, clear oral mucosa Ears: bilateral: normal - Neck Neck: supple, normal ROM - Respiratory Respiratory effort: normal Respiratory: bilateral: CTA - Breasts Breasts: normal - Cardiovascular Heart rate: 80 Rhythm: regular Heart Sounds: Present: S1 & S2. Absent: gallop, rub Extremities: no ischemia, pulses intact, No edema, normal color, Full ROM - Gastrointestinal General gastrointestinal: Present: soft, non-tender, non-distended, normal bowel sounds Rectal Exam: deferred - Genitourinary Male genitourinary: normal - Integumentary Integumentary: clear, warm, dry - Musculoskeletal Musculoskeletal: 1, strength equal bilaterally - Neurologic Neurologic: moves all extremities - Psychiatric Psychiatric: memory intact, appropriate mood/affect, intact judgment & insight - Allied health notes Allied health notes reviewed: nursing, case management - Labs CBC & Chem 7: 04/05/18 03:27 04/05/18 03:27 Labs: Abnormal lab results 04/04/18 04/05/18 04/05/18 Range/Units Unknown 03:27 03:27 MCV 102 H (84-94) fl MCH 36 H (28-32) pg MCHC 35 H (32-34) % RDW 12.6 L (13.2-15.2) % [place] % (Auto) 10.4 H (0.0-7.3) % [place] # 0.9 H (0.0-0.8) K/mm3 Sodium 136 L (137-145) mmol/L Creatinine 0.7 L (0.8-1.5) mg/dL Calcium 8.1 L D (8.4-10.2) mg/dL Total Protein 5.6 L D (6.3-8.2) g/dL Albumin 3.3 L (3.9-5) g/dL Lipase (13-60) units/L Ur Specific [place] 1.057 H (1.003-1.030) 04/05/18 Range/Units 03:27 MCV (84-94) fl MCH (28-32) pg MCHC (32-34) % RDW (13.2-15.2) % [place] % (Auto) (0.0-7.3) % [place] # (0.0-0.8) K/mm3 Sodium (137-145) mmol/L Creatinine (0.8-1.5) mg/dL Calcium (8.4-10.2) mg/dL Total Protein (6.3-8.2) g/dL Albumin (3.9-5) g/dL Lipase 87 H (13-60) units/L Ur Specific [place] (1.003-1.030)
[2018-04-05] MEDS: DILAUDID IV PRN (19:59)
[2018-04-06] MEDS: D5NS 1,000 ML IV SCH ×3 (03:50→22:30)
[2018-04-06] MEDS: DILAUDID IV PRN ×3 (07:50→20:31)
--- NOTE | 2018-04-06 09:47 | Progress Note ---
Assessment and Plan Acute pancreatitis: CT showed no acute pancreatitis surgery following continue clear liquid diet. Dehydration: Improved with IVF continue IV fluids. Acute kidney injury: Resolved with IV fluids. Alcohol dependence: [facility] protocol On ativan. Tobacco use disorder: Counseled patient on smoking cessation. Malnutrition: Secondary to alcohol abuse core analyst following. DVT prophylaxis with Lovenox, GI prophylaxis with Famotidine. Subjective Date of service: 04/06/18 Principal diagnosis: Acute pancreatitis Interval history: Patient seen and examined. No overnight events. Laboratory tests reviewed. Objective - Constitutional Vitals: Vital Signs - 12hr 04/05/18 04/06/18 23:32 05:31 Temperature 97.6 F Pulse Rate 76 74 Respiratory 20 18 Rate Blood Pressure 105/64 O2 Sat by Pulse 97 98 Oximetry General appearance: Present: no acute distress, well-nourished - EENT Eyes: PERRL, EOM intact ENT: hearing intact, clear oral mucosa Ears: bilateral: normal - Neck Neck: supple, normal ROM - Respiratory Respiratory effort: normal Respiratory: bilateral: CTA - Breasts Breasts: deferred - Cardiovascular Rhythm: regular Heart Sounds: Present: S1 & S2. Absent: gallop, rub Extremities: pulses intact, No edema, normal color, Full ROM - Gastrointestinal General gastrointestinal: Present: soft, non-tender, non-distended, normal bowel sounds Rectal Exam: deferred - Genitourinary Male genitourinary: deferred - Integumentary Integumentary: clear, warm, dry - Musculoskeletal Musculoskeletal: strength equal bilaterally - Neurologic Neurologic: moves all extremities - Labs CBC & Chem 7: 04/05/18 03:27 04/05/18 03:27 Labs: Abnormal lab results 04/06/18 04/06/18 Range/Units 05:27 05:27 Lipase 95 H (13-60) units/L Hepatitis C Antibody Reactive A (NonReactive)
[2018-04-06] MEDS: LOVENOX SUB-Q SCH (10:16)
[2018-04-06] MEDS: PEPCID IV SCH ×2 (10:16→21:18)
[2018-04-06] MEDS: SODIUM CHLORIDE FLUSH SYRINGE 10 ML IV SCH ×2 (10:16→21:18)
--- NOTE | 2018-04-06 14:23 | Progress Note ---
Assessment and Plan - Patient Problems (1) Acute pancreatitis Current Visit: Yes Status: Acute Qualifiers: Pancreatitis type: alcohol induced Plan to address problem: Patient appears stable with a benign abdomen. Lipase is relatively stable. Patient reports that he is hungry. He reports that his family is bringing in food. I strongly advised him to not eat anything other than what we are giving him. Advancing the diet too rapidly can aggravate his pancreatitis. He said he understood. I also advised him against daily alcohol use as I believe this is what causes pancreatitis. He said he will decreases use. I will advance until full liquid diet. His hepatitis C antibody is positive. We'll send for the quantitative analysis. I will discuss this with him at our next encounter. Please call if any questions. Please call if there any questions. We will follow along. Time=10min Subjective Date of service: 04/06/18 Patient Reports: Positive: no new complaints, feels better, pain is less, tolerating liquids well. Negative: nausea, vomiting Objective Vital Signs - 12hr 04/06/18 04/06/18 05:31 11:58 Temperature 97.6 F 98.1 F Pulse Rate 74 64 Respiratory 18 16 Rate Blood Pressure 105/64 119/79 O2 Sat by Pulse 98 99 Oximetry - General physical appearance no distress, no pain, other (Pt sitting up in chair. Looks great. ) - Eyes normal occular movement, other (anicteric) - Respiratory normal expansion, normal respiratory effort - Abdomen soft, not tender, distended (mild), not guarding, not rigid - Integumentary no rash, no growths, no abnormal pigmentation - Psychiatric oriented to time, oriented to person, oriented to place, speech is normal, memory intact - Labs 04/05/18 03:27 04/05/18 03:27
[2018-04-07] MEDS: D5NS 1,000 ML IV SCH ×2 (07:21→18:43)
[2018-04-07] MEDS: DILAUDID IV PRN ×5 (07:23→22:19)
--- NOTE | 2018-04-07 09:48 | Gastroenterology Consultation ---
<KIKE CAMEJO - Last Filed: 04/07/18 10:09> History of Present Illness - Reason for Consult Consult date: 04/07/18 Hep C Requesting physician: CARLOS GALINDO - History of Present Illness Patient is a 52 y/o male who presented to ED with c/o radiating epigastric pain to his back with associated N/V. Lipase was found to be elevated upon arrival and he was admitted for acute pancreatitis most likely related to alcohol. Surgery following with no recommendations for surgical intervention of gallbladder. Patient voiced a concern that he may have hepatitis C based on prior attempt at blood donation. Labs confirmed hepatitis C antibody positive to which GI has been consulted. This morning patient was resting in bed w/o acute distress. He reports abd pain is improved and N/V now resolved. Tolerating liquids. GERD currently controlled with Pepcid. Admits to smoking over 1PPD, drinking 2 bottles of 24oz beer daily, and regular use of marijuana but denies hx of IV drug use. Has multiple tattoos. Denies fever, wt loss, CP, SOB, jaundice, itching, signs of bleeding, or LGI symptoms. Past History Past Medical History: GERD, other (anxiety) Past Surgical History: hernia repair (BIH repairs) Social history: smoking (reports 1pack/week), alcohol abuse (24oz can of beer daily), other (marijuana). denies: IV drug use Family history: no significant family history Medications and Allergies Allergies Allergy/AdvReac Type Severity Reaction Status Date / Time metoclopramide HCl Allergy Unknown Verified 12/14/15 09:30 [From Reglan] promethazine HCl Allergy Unknown Verified 12/14/15 09:30 [From Phenergan] Home Medications Medication Instructions Recorded Confirmed Last Taken Type No Known Home Medications [No 01/20/17 04/07/18 Unknown History Reported Home Medications] Active Meds: Active Medications Acetaminophen (Tylenol) 650 mg PO Q4H PRN PRN Reason: Pain MILD(1-3)/Fever >100.5/FUNK Enoxaparin Sodium (Lovenox) 40 mg SUB-Q QDAY [facility] Last Admin: 04/06/18 10:16 Dose: 40 mg Famotidine (Pepcid) 20 mg IV BID [facility] Last Admin: 04/06/18 21:18 Dose: 20 mg Hydromorphone HCl (Dilaudid) 1 mg IV Q3H PRN PRN Reason: Pain , Severe (7-10) Last Admin: 04/07/18 07:23 Dose: 1 mg Dextrose/Sodium Chloride (D5ns) 1,000 mls @ 100 mls/hr IV DIRECT [facility] Last Admin: 04/07/18 07:21 Dose: 100 mls/hr Lorazepam (Ativan) 2 mg IV Q1H PRN PRN Reason: CIWA-Ar 8-15 Lorazepam (Ativan) 4 mg IV Q1H PRN PRN Reason: CIWA-Ar 16-25 Metoclopramide HCl (Reglan) 10 mg IV Q6H PRN PRN Reason: Nausea And Vomiting Morphine Sulfate (Morphine) 4 mg IV Q4H PRN PRN Reason: Pain, Moderate (4-6) Ondansetron HCl (Zofran) 4 mg IV Q8H PRN PRN Reason: Nausea And Vomiting Promethazine HCl (Phenergan) [address] Q6H PRN PRN Reason: N/V IF NPO AND NO IV ACCESS Sodium Chloride (Sodium Chloride Flush Syringe 10 Ml) 10 ml IV BID [facility] Last Admin: 04/06/18 21:18 Dose: 10 ml Sodium Chloride (Sodium Chloride Flush Syringe 10 Ml) 10 ml IV PRN PRN PRN Reason: LINE FLUSH Review of Systems - Review of Systems All systems: negative Gastrointestinal: abdominal pain Exam - Constitutional Vital Signs: Temp Pulse Resp BP Pulse Ox 98.1 F 60 20 119/69 98 04/07/18 06:03 04/07/18 06:03 04/07/18 06:03 04/07/18 06:03 04/07/18 06:03 General appearance: no acute distress - Respiratory Respiratory: bilateral: CTA - Cardiovascular Rhythm: regular Heart Sounds: Present: S1 & S2 - Gastrointestinal General gastrointestinal: Present: soft, non-tender, non-distended, normal bowel sounds - Neurologic Neurological: alert and oriented x3 - Labs CBC & Chem 7: 04/05/18 03:27 04/05/18 03:27 Assessment and Plan 1.Hep C -hepatitis C antibody positive -LFTs WNL -abd CT showed small liver cysts and small hemangioma -will order HCV VL and genotype -further evaluation and treatment as outpatient -discussed need for follow up with patient with understanding voiced- office information and card given to pt 2.acute pancreatitis -lipase-improving -CT showed no acute pancreatitis -etiology-most likely 2/2 alcohol abuse -clinically, patient is stable with symptoms improved -tolerating liquids -advance diet as tolerated -continue supportive care 3.alcohol dependence -cessation discussed with patient <NANETTE RIGGS - Last Filed: 04/07/18 16:09> Medications and Allergies Active Meds: Active Medications Acetaminophen (Tylenol) 650 mg PO Q4H PRN PRN Reason: Pain MILD(1-3)/Fever >100.5/FUNK Diphenhydramine HCl (Benadryl) 25 mg IV Q6H PRN PRN Reason: Itching Last Admin: 04/07/18 15:04 Dose: 25 mg Enoxaparin Sodium (Lovenox) 40 mg SUB-Q QDAY [facility] Last Admin: 04/07/18 10:09 Dose: 40 mg Famotidine (Pepcid) 20 mg IV BID [facility] Last Admin: 04/07/18 10:09 Dose: 20 mg Hydromorphone HCl (Dilaudid) 1 mg IV Q3H PRN PRN Reason: Pain , Severe (7-10) Last Admin: 04/07/18 15:04 Dose: 1 mg Dextrose/Sodium Chloride (D5ns) 1,000 mls @ 100 mls/hr IV DIRECT [facility] Last Admin: 04/07/18 07:21 Dose: 100 mls/hr Lorazepam (Ativan) 2 mg IV Q1H PRN PRN Reason: CIWA-Ar 8-15 Lorazepam (Ativan) 4 mg IV Q1H PRN PRN Reason: CIWA-Ar 16-25 Metoclopramide HCl (Reglan) 10 mg IV Q6H PRN PRN Reason: Nausea And Vomiting Morphine Sulfate (Morphine) 4 mg IV Q4H PRN PRN Reason: Pain, Moderate (4-6) Ondansetron HCl (Zofran) 4 mg IV Q8H PRN PRN Reason: Nausea And Vomiting Promethazine HCl (Phenergan) [address] Q6H PRN PRN Reason: N/V IF NPO AND NO IV ACCESS Senna/Docusate Sodium (Senokot S) 2 tab PO Q12HR [facility] Sodium Chloride (Sodium Chloride Flush Syringe 10 Ml) 10 ml IV BID [facility]UC Last Admin: 04/07/18 10:10 Dose: 10 ml Sodium Chloride (Sodium Chloride Flush Syringe 10 Ml) 10 ml IV PRN PRN PRN Reason: LINE FLUSH Exam - Constitutional Vital Signs: Temp Pulse Resp BP Pulse Ox 98.4 F 63 20 122/75 99 04/07/18 11:29 04/07/18 11:29 04/07/18 11:29 04/07/18 11:29 04/07/18 11:29 - Labs CBC & Chem 7: 04/05/18 03:27 04/05/18 03:27 Assessment and Plan Pt works at [employer] in [place] [facility]. Discussed HCV treatment as outpatient. Also, discussed lifestyle changes. Pt improving. Will sign off. Please call as needed.
[2018-04-07] MEDS: LOVENOX SUB-Q SCH (10:09)
[2018-04-07] MEDS: PEPCID IV SCH ×2 (10:09→22:19)
[2018-04-07] MEDS: SODIUM CHLORIDE FLUSH SYRINGE 10 ML IV SCH ×2 (10:10→22:21)
--- NOTE | 2018-04-07 13:30 | Progress Note ---
Assessment and Plan Acute pancreatitis: CT showed no acute pancreatitis surgery following continue clear liquid diet. Dehydration: Improved with IVF continue IV fluids. Acute kidney injury: Resolved with IV fluids. Alcohol dependence: [facility] protocol On ativan. Tobacco use disorder: Counseled patient on smoking cessation. Malnutrition: Secondary to alcohol abuse employment advisor following. DVT prophylaxis with Lovenox, GI prophylaxis with Famotidine. Subjective Date of service: 04/07/18 Principal diagnosis: Acute pancreatitis Interval history: Patient seen and examined. No overnight events. Serial Having abdominal pain. Laboratory tests reviewed. Objective - Exam Narrative Exam: Constitutional: Well-nourished well-developed. In no distress Head: Normocephalic atraumatic Eyes: Pupils are equal round and reactive to light Nose: No enlarged turbinates, no septal deviation. Mouth: Moist mucous membranes. Neck: Supple no thyromegaly. No bruit. No JVD Heart: Regular rate and rhythm, S1-S2 abnormal. No rubs murmurs or gallop Lungs: Clear to auscultation bilaterally no rales or rhonchi Abdomen: Soft, tender. Bowel sound are present. Extremities: No edema no cyanosis and no clubbing. Neuro: Alert oriented Oriented x3. No focal sensory or motor deficit. Skin: No rashes no hyperemic spots Psychiatry: Euthymic. Calm. - Constitutional Vitals: Vital Signs - 12hr 04/07/18 04/07/18 06:03 11:29 Temperature 98.1 F 98.4 F Pulse Rate 60 63 Respiratory 20 20 Rate Blood Pressure 119/69 122/75 O2 Sat by Pulse 98 99 Oximetry - Labs CBC & Chem 7: 04/05/18 03:27 04/05/18 03:27
[2018-04-07] MEDS: BENADRYL IV PRN ×2 (15:04→23:33)
--- NOTE | 2018-04-07 15:12 | Progress Note ---
Assessment and Plan - Patient Problems (1) Acute pancreatitis Current Visit: Yes Status: Acute Qualifiers: Pancreatitis type: alcohol induced Plan to address problem: Patient appears stable with a benign abdomen. Pt has done well with full liquids. Will advance to a soft diet. No surgery is anticipated. Can be discharged whenever medically cleared. f/u prn. Hep C evaluation will be handled by GI. Please call if any questions. Will follow peripherally. Time=10min Subjective Date of service: 04/07/18 Patient Reports: Positive: no new complaints, feels better, pain is less, tolerating liquids well, flatus, bowel movement. Negative: nausea, vomiting Objective Vital Signs - 12hr 04/07/18 04/07/18 06:03 11:29 Temperature 98.1 F 98.4 F Pulse Rate 60 63 Respiratory 20 20 Rate Blood Pressure 119/69 122/75 O2 Sat by Pulse 98 99 Oximetry - General physical appearance no distress, no pain, other (continues to have intermittent twitches) - Eyes normal occular movement - Respiratory normal expansion, normal respiratory effort - Abdomen soft, not tender, distended (mild), not guarding, not rigid - Integumentary no rash, no growths, no abnormal pigmentation - Psychiatric oriented to time, oriented to person, oriented to place, speech is normal, memory intact - Labs 04/05/18 03:27 04/05/18 03:27
[2018-04-07] MEDS: SENOKOT S PO SCH ×2 (18:06→22:23)
[2018-04-08] MEDS: D5NS 1,000 ML IV SCH ×2 (05:52→17:29)
[2018-04-08] MEDS: DILAUDID IV PRN ×3 (08:08→17:28)
[2018-04-08] MEDS: BENADRYL IV PRN (08:09)
[2018-04-08] MEDS: LOVENOX SUB-Q SCH (10:30)
[2018-04-08] MEDS: PEPCID IV SCH (10:30)
[2018-04-08] MEDS: SODIUM CHLORIDE FLUSH SYRINGE 10 ML IV SCH (10:31)
[2018-04-08] MEDS: SENOKOT S PO SCH (10:31)
--- NOTE | 2018-04-08 10:44 | Gastroenterology Progress Note ---
Assessment and Plan 1.Hep C -hepatitis C antibody positive -LFTs WNL -abd CT showed small liver cysts and small hemangioma -HCV VL and genotype pending -recommend further evaluation and treatment as outpatient -discussed need for follow up with patient with understanding voiced- office information and card given to pt -patient okay to be d/c per GI standpoint -will sign off, please call if needed 2.acute pancreatitis -lipase-improving -CT showed no acute pancreatitis -etiology-most likely 2/2 alcohol abuse -clinically, patient is stable with symptoms improved -tolerating diet -continue supportive care 3.alcohol dependence -cessation discussed with patient Subjective Date of service: 04/08/18 Principal diagnosis: Hep C Interval history: Patient resting in bed w/o acute distress. Reports feeling better with abd pain improved and no N/V. Tolerating diet. Objective - Constitutional Vitals: Temp Pulse Resp BP Pulse Ox 98.4 F 71 16 119/79 98 04/08/18 05:23 04/08/18 05:23 04/08/18 05:23 04/08/18 05:23 04/08/18 05:23 General appearance: no acute distress - Respiratory Respiratory: bilateral: CTA - Cardiovascular Rhythm: regular Heart Sounds: Present: S1 & S2 - Gastrointestinal General gastrointestinal: Present: soft, non-tender, non-distended, normal bowel sounds - Neurologic Neurological: alert and oriented x3 - Labs CBC & Chem 7: 04/05/18 03:27 04/05/18 03:27
--- NOTE | 2018-04-08 11:58 | Progress Note ---
Subjective Date of service: 04/08/18 Principal diagnosis: Hep C Objective - Constitutional Vitals: Vital Signs - 12hr 04/08/18 05:23 Temperature 98.4 F Pulse Rate 71 Respiratory 16 Rate Blood Pressure 119/79 O2 Sat by Pulse 98 Oximetry - Labs CBC & Chem 7: 04/05/18 03:27 04/05/18 03:27
--- NOTE | 2018-04-08 17:29 | Discharge Summary ---
Providers - Providers Date of Admission: 04/04/18 11:14 Date of discharge: 04/08/18 Attending physician: CARLOS GALINDO 04/04/18 21:20 Consult to Physician [CONS] Routine Comment: Consulting Provider: EAN DICKSON Physician Instructions: Reason For Exam: acute pancreatitis 04/06/18 22:53 Consult to Physician [CONS] Routine Comment: Consulting Provider: ELLIE WARREN Physician Instructions: Reason For Exam: Hep c Primary care physician: CUSTOMER ASSISTANT Hospitalization Condition: Fair Pertinent studies: CT of abdomen and pelvis showed two small liver cysts unchanged and 8mm liver lesion likely hemangioma Hospital course: 52-year-old male with no significant past medical history comes in for severe epigastric pain of 4 days' duration. Pain is sharp and is 10 over 10. Radiating to the back. It is associated with nausea and vomiting 2-3 times a day. No diarrhea. Patient consumes alcohol on a regular basis. He uses about 2 bottles of 24 ounces beer and also marijuana on a regular basis. Smokes over a pack a day. No fever or chills. No exacerbating or relieving factors. Core Measure Documentation - Palliative Care Palliative Care/ Comfort Measures: Not Applicable - Core Measures Any of the following diagnoses?: none Exam - Physical Exam Narrative exam: Constitutional: Well-nourished well-developed. In no distress Head: Normocephalic atraumatic Eyes: Pupils are equal round and reactive to light Nose: No enlarged turbinates, no septal deviation. Mouth: Moist mucous membranes. Neck: Supple no thyromegaly. No bruit. No JVD Heart: Regular rate and rhythm, S1-S2 abnormal. No rubs murmurs or gallop Lungs: Clear to auscultation bilaterally no rales or rhonchi Abdomen: Soft, tender. Bowel sound are present. Extremities: No edema no cyanosis and no clubbing. Neuro: Alert oriented Oriented x3. No focal sensory or motor deficit. Skin: No rashes no hyperemic spots Psychiatry: Euthymic. Calm. - Constitutional Vitals: Temp Pulse Resp BP Pulse Ox 98.7 F 67 20 120/75 96 04/08/18 11:27 04/08/18 11:27 04/08/18 11:27 04/08/18 11:27 04/08/18 11:27 Plan Activity: advance as tolerated Diet: regular Follow up with: PRIMARY CARE,MD [Primary Care Provider] - 3-5 Days Prescriptions: Famotidine [Pepcid] 20 mg PO BID #60 tablet HYDROcodone/APAP 5-325 [[place] 5-325 mg TAB] 1 each PO Q4HR PRN #15 tablet PRN Reason: Pain
[2018-04-08 18:25] VITALS: BP 141/89
== END 2018-04-08 20:36 | disposition home or self-care (01) | DRG 682 ==
LOC: ED 08:18 → 3A 11:14
PROVIDERS: ADMIT Internal Medicine; ATTEND Family Medicine
DX: N17.9 Acute kidney failure, unspecified (principal); K85.20 Alcohol induced acute pancreatitis without necrosis or infection; E46 Unspecified protein-calorie malnutrition; K76.89 Other specified diseases of liver; F17.200 Nicotine dependence, unspecified, uncomplicated; K21.9 Gastro-esophageal reflux disease without esophagitis; F41.9 Anxiety disorder, unspecified; F12.90 Cannabis use, unspecified, uncomplicated; B19.20 Unspecified viral hepatitis C without hepatic coma; D18.09 Hemangioma of other sites; E86.0 Dehydration; F10.20 Alcohol dependence, uncomplicated; Z71.6 Tobacco abuse counseling; Z68.21 Body mass index [BMI] 21.0-21.9, adult
CPT/HCPCS: 36415; 74177; 80048; 80053; 80074; 81001; 82140; 82150; 82550; 82553; 83036; 83690; 83735; 84100; 84484; 85025; 86803; 87517; 87902; 96361; 96374; 96375; 99406; C9113; J1170; J1200; J1650; J2405; J3010; J7030; J7042; Q9967